=== PATIENT | male | born 1950 | race American Indian/Alaskan Native ===

== ENCOUNTER 2020-07-26 13:35 | Observation (INO) | payer MEDICARE, OTHER ==
[2020-07-26] MEDS ORDERED: MORPHINE 4 MG/1 ML INJ IV ONE (13:45)
[2020-07-26] MEDS ORDERED: ONDANSETRON 4 MG/2 ML INJ IV ONE (13:45)
--- NOTE | 2020-07-26 14:18 | Emergency Department Report ---
ED General Adult HPI - General Stated complaint: LEG PAIN Time Seen by Provider: 07/26/20 13:43 Source: patient - History of Present Illness Initial comments: Patient presents to the emergency department from Dr. Lindo's office for an ischemic left limb. Dr. Lindo who is a local vascular surgeon called to inform me that the patient had a procedure this morning without resolvent of blockage to his left lower extremity. Dr. Lindo will reach out to Dr. Kumar to make him aware of the patient's medical issue. Upon arrival the patient complains of significant pain to the left lower extremity especially the left foot. Patient states any movement of the left foot caused significant pain. Patient denies chest pain, shortness breath, headache. -: Sudden Location: lower extremity Radiation: non-radiation Severity scale (0 -10): 10 Quality: sharp Consistency: constant Improves with: rest Worsens with: movement Associated Symptoms: denies other symptoms Treatments Prior to Arrival: none ED Review of Systems ROS: Stated complaint: LEG PAIN Other details as noted in HPI Constitutional: denies: chills, fever Eyes: denies: eye pain, eye discharge, vision change ENT: denies: ear pain, throat pain Respiratory: denies: cough, shortness of breath, wheezing Cardiovascular: denies: chest pain, palpitations Endocrine: no symptoms reported Gastrointestinal: denies: abdominal pain, nausea, diarrhea Genitourinary: denies: urgency, dysuria Musculoskeletal: denies: back pain, joint swelling, arthralgia Skin: denies: rash, lesions Neurological: denies: headache, weakness, paresthesias Psychiatric: denies: anxiety, depression Hematological/Lymphatic: denies: easy bleeding, easy bruising ED Physical Exam - General General appearance: alert, in no apparent distress - Head Head exam: Present: atraumatic, normocephalic - Eye Eye exam: Present: normal appearance - ENT ENT exam: Present: mucous membranes moist - Neck Neck exam: Present: normal inspection - Respiratory Respiratory exam: Present: normal lung sounds bilaterally. Absent: respiratory distress - Cardiovascular Cardiovascular Exam: Present: regular rate, normal rhythm, other (Patient is left foot is cool to touch and blue without cap refill. There is no palpation of the dorsalis pedis or posterior tibialis pulses). Absent: systolic murmur, diastolic murmur, rubs, gallop - GI/Abdominal GI/Abdominal exam: Present: soft, normal bowel sounds. Absent: distended, tenderness - Rectal Rectal exam: Present: deferred - Back Exam Back exam: Present: normal inspection - Neurological Exam Neurological exam: Present: alert, oriented X3, CN II-XII intact. Absent: motor sensory deficit - Psychiatric Psychiatric exam: Present: normal affect, normal mood - Skin Skin exam: Present: warm, dry, intact, normal color. Absent: rash ED Medical Decision Making - Medical Decision Making Contacted Dr. Kumar who presented to the emergency department to see the patient. Plans for the patient [facility] with an attempt to revascularize the left lower extremity. Critical care attestation.: If time is entered above; I have spent that time in minutes in the direct care of this critically ill patient, excluding procedure time. ED Disposition Clinical Impression: Ischemic leg Disposition: OP ADMIT IP TO THIS HOSP Is pt being admited?: Yes Does the pt Need Aspirin: No Condition: Fair
--- NOTE | 2020-07-26 14:22 | Consultation ---
History of Present Illness - Reason for Consult Consult date: 07/26/20 Ischemic LLE Requesting physician: JOSETTE MACK - History of Present Illness 69-year-old male who presents with left lower extremity ischemic pain. Patient presents to the emergency department from Dr. Gimenez's office for an ischemic left limb. Dr. Gimenez who is a local vascular specialist called to inform me that the patient had a procedure this morning without resolvent of blockage to his left lower extremity. Dr. Gimenez will reach out to Dr. Kumar to make him aware of the patient's medical issue. Upon arrival the patient complains of significant pain to the left lower extremity especially the left foot. Patient states any movement of the left foot caused significant pain. Patient denies chest pain, shortness breath, headache. I was contacted earlier today about a complication at an outside practice and I was told the patient would be coming to the emergency room at [facility]. Patient has history of bilateral lower extremity fasciotomies and right femoral endarterectomy. Patient had a thrombotic showering event of the left lower extremity after intervention and now presents to the hospital with acute limb ischemia. Left lower extremity is Bennett 2a with intact motor function of the left lower extremity. He has a palpable right dorsalis pedis and posterior tibial pulse. Nonpalpable left pedal pulses Review of Systems All systems: negative (see HPI) Exam - Constitutional General appearance: Present: severe distress (Severe left lower extremity foot and calf pain) - Neck Neck: Present: supple - Respiratory Respiratory effort: normal - Extremities Extremities: abnormal (Called left foot, cold calf from mid calf down, severe left foot pain, sensory function is worse than baseline of the forefoot, motor function intact) Extremity abnormal: pulses diminished (Nonpalpable left pedal pulses, palpable right pedal pulses) - Abdominal General gastrointestinal: Present: soft, non-tender - Psychiatric Psychiatric: appropriate mood/affect, cooperative, other (In pain) Assessment and Plan 69-year-old male with left lower extremity showering event after iliac intervention by Dr. Gimenez who presents to [facility] with acute limb ischemia of the left lower extremity. I suspect there is developing trash foot of the left lower extremity from thrombotic showering due to left iliac intervention. Discussed with patient that he will need iliac artery stenting with covered stents and subsequently attempt at revascularization of the left lower extremity with thrombectomy devices. Risks, benefits, and alternatives discussed, risk of limb loss and bleeding discussed in depth with patient. Patient understands. Start heparin drip.
[2020-07-26 14:39] LABS: Basophils % (Auto) 0.3 % (0.0-1.8); Eosinophils % (Auto) 0.1 % (0.0-4.3); Hematocrit 44.1 % (35.5-45.6); Hemoglobin 14.3 gm/dl (11.8-15.2); Lymphocytes # (Auto) 1.7 K/mm3 (1.2-5.4); Lymphocytes % (Auto) 12.5 % (13.4-35.0); Mean Corpuscular HGB Conc 32 % (32-34); Mean Corpuscular Volume 71 fl (84-94); Monocytes # (Auto) 0.7 K/mm3 (0.0-0.8); Monocytes % (Auto) 4.9 % (0.0-7.3); Platelet Count 144 K/mm3 (140-440); Red Blood Count 6.19 M/mm3 (3.65-5.03); Red Cell Distribution Width 15.8 % (13.2-15.2)
[2020-07-26 14:50] LABS: Alanine Aminotransferase 120 units/L (7-56); Albumin 4.3 g/dL (3.9-5); BUN/Creatinine Ratio 14; Blood Urea Nitrogen 13 mg/dL (9-20); Calcium 9.2 mg/dL (8.4-10.2); Hemolysis Index 3
[2020-07-26] MEDS ORDERED: LIDOCAINE (2%) 20 MG/1 ML VIAL 20 ML MDV INFILTRATI ONE (15:05)
[2020-07-26] MEDS ORDERED: HEPARIN/NS 5000 UNIT/500ML 1,000 ML IR ONE ×2 (15:05→16:37)
[2020-07-26] MEDS ORDERED: SODIUM CHLORIDE 0.9% 1000 ML 1,000 ML ONE (15:06)
[2020-07-26 15:15] LABS: INR TNR (0.87-1.13); Partial Thromboplastin Time TNR Sec. (24.2-36.6)
[2020-07-26 15:17] LABS: Hematocrit 44.9 % (35.5-45.6); Hemoglobin 14.4 gm/dl (11.8-15.2)
[2020-07-26] MEDS ORDERED: ceFAZolin/Water 2 GM/20 ML 2 GM/20 ML SYRINGE IV ONE (15:50)
[2020-07-26] MEDS: MIDAZOLAM 2 MG/2 ML INJ ONE ×5 (15:59→17:55)
[2020-07-26] MEDS: fentaNYL 100 MCG/2 ML INJ ONE ×4 (15:59→17:55)
[2020-07-26] MEDS ORDERED: HEPARIN/ 0.45% NACL DRIP 25,000 UNIT/500 ML BAG IV SCH (16:00)
[2020-07-26] MEDS: HEPARIN 10,000 UNITS/10 ML VIAL ONE ×3 (16:49→18:12)
[2020-07-26] MEDS ORDERED: fentaNYL 100 MCG/2 ML INJ ONE (18:06)
[2020-07-26] MEDS ORDERED: MIDAZOLAM 2 MG/2 ML INJ ONE (18:06)
[2020-07-26] MEDS ORDERED: HEPARIN/NS 5000 UNIT/500ML 500 ML IR ONE (18:07)
[2020-07-26] MEDS ORDERED: NITROGLYCERIN SYRINGE 6 ML ONE (18:33)
[2020-07-26] MEDS: VERAPAMIL 5 MG/2 ML INJ ONE ×2 (18:37→18:38)
[2020-07-26] MEDS ORDERED: NITROGLYCERIN 2% OINT 1 GM TP ONE (19:09)
[2020-07-26] MEDS ORDERED: CLOPIDOGREL 300 MG TAB ONE (19:19)
[2020-07-26] MEDS ORDERED: ASPIRIN 81 MG TAB CHEW ONE (19:19)
[2020-07-26] MEDS ORDERED: SODIUM CHLORIDE 0.9% 500 ML 500 ML ONE (19:21)
--- NOTE | 2020-07-26 19:29 | Post Operative Note ---
Date of procedure: 07/26/20 Pre-op diagnosis: Acute limb ischemia of the left lower extremity Post-op diagnosis: same Procedure: 1. Ultrasound guided access of the right common femoral artery 2. Fluoroscopic guided access of the left common femoral artery 3. Selection of the abdominal aorta with bilateral lower extremity angiography 4. Stenting of the right common iliac artery with a VBX 8 mm x 59 mm which was post dilated with a 9 mm x 60 mm angioplasty balloon 5. Stenting of the left common iliac artery with a VBX 8 mm x 39 mm which was post dilated with a 9 mm x 60 mm angioplasty balloon 6. Ultrasound guided access of the left superficial femoral artery 7. Fluoroscopic guided placement of a 7 mm spider EPD in the left below the knee popliteal artery 7. Selection of the left superficial femoral artery and popliteal artery with CAT 6 aspiration penumbra thrombectomy of the left above the knee and mid knee popliteal artery stent. 8. Stenting of the left above the knee and mid knee popliteal artery with a 7 mm x 150 mm Everflex post dilated with a 6 mm x 150 mm iNPACT balloon 9. Fluoroscopic guided removal of the spider EPD 10. Selection of the left posterior tibial artery with CAT 6 aspiration penumbra thrombectomy and CAT RX aspiration penumbra thrombectomy 11. Angioplasty of the left posterior tibial artery with a 2.5 mm x 150 mm balloon 12. Injection of 5 mg of verapamil and 500 micrograms of nitroglycerin in the left posterior tibial artery 13. 6 Fr Angioseal closure of the left superficial femoral artery 14. Closure of the common femoral artery sheaths with manual compression Anesthesia: local (w/ conscious sedation) Surgeon: IVAN VALIENTE Estimated blood loss: minimal Condition: stable Disposition: floor
--- NOTE | 2020-07-26 19:30 | Operative Report ---
Operative Report Operative Report: EXAM: 1. Ultrasound guided access of the right common femoral artery 2. Fluoroscopic guided access of the left common femoral artery 3. Selection of the abdominal aorta with bilateral lower extremity angiography 4. Stenting of the right common iliac artery with a VBX 8 mm x 59 mm which was post dilated with a 9 mm x 60 mm angioplasty balloon 5. Stenting of the left common iliac artery with a VBX 8 mm x 39 mm which was post dilated with a 9 mm x 60 mm angioplasty balloon 6. Ultrasound guided access of the left superficial femoral artery 7. Selection of the left superficial femoral artery and popliteal artery with CAT 6 aspiration penumbra thrombectomy of the left above the knee and mid knee popliteal artery stent. 8. Fluoroscopic guided placement of a 7 mm spider EPD in the left below the knee popliteal artery 9. Stenting of the left above the knee and mid knee popliteal artery with a 7 mm x 150 mm Everflex post dilated with a 6 mm x 150 mm iNPACT balloon 10. Fluoroscopic guided removal of the spider EPD 11. Selection of the left posterior tibial artery with CAT 6 aspiration penumbra thrombectomy and CAT RX aspiration penumbra thrombectomy 12. Angioplasty of the left posterior tibial artery with a 2.5 mm x 150 mm balloon 13. Injection of 5 mg of verapamil and 500 micrograms of nitroglycerin in the left posterior tibial artery 14. 6 Fr Angioseal closure of the left superficial femoral artery 15. Closure of the common femoral artery sheaths with manual compression DATE: 07/26/2020 CLAY MINER: IVAN VALIENTE MD INDICATION: Acute limb ischemia of the left lower extremity, Zuly 2A, had embolic showering event at outside facility and presents to the emergency room with ischemic left lower extremity. MEDICATIONS: Please see nursing report for full details. DEVICES: 8 mm x 59 mm VBX, right side 8 mm x 39 mm VBX, left side 7 mm x 150 mm Everflex, left side 6 mm x 150 mm iNPACT balloon, left side 2.5 mm x 150 mm milli balloon CAT 6 indigo penumbra thrombectomy device CAT RX indigo penumbra thrombectomy device CONTRAST: Please see Comic Illustrator report for full details. PROCEDURE: The risks, benefits, and alternatives were discussed with the patient; written informed consent was obtained. The patient's groins and entire left leg were prepped and draped in a sterile fashion. The bilateral groins had severe scarring secondary to prior endarterectomies. Heparin had been started prior to the procedure with a heparin drip. Ultrasound was used to identify the right common femoral artery. Under direct ultrasound guidance, the right common femoral artery was accessed with a 21- gauge micropuncture needle. 0.018 inch wire was passed into the aorta. The inner part of the transitional dilator was used to exchanged the wire for a V 18 wire. Transitional dilator was reassembled over the wire and the wire was then exchanged for a Glidewire advantage. Serial dilatation was performed until a 5 Afghan sheath was placed. Digital subtraction angiography was performed demonstrating an appropriate puncture, above the level of the bifurcation, and below the inferior epigastric artery. The right common femoral artery, proximal superficial femoral artery, and profunda femoral artery were patent. Omni Flush catheter was advanced over the wire and used to select the abdominal aorta. Digital subtraction angiography was performed demonstrating 20% narrowing of the right common iliac artery stent, patency of the right external iliac artery, and flush occlusion of the right internal iliac artery. There was reconstitution of some of the internal iliac branches. The left common iliac artery was occluded. The left internal iliac artery was patent and provided flow into the left external iliac artery which was also patent. The left common femoral artery was patent. The infrarenal abdominal aorta was patent. Ultrasound was used to attempt to identify the left common femoral artery, but due to extensive scarring, this was not possible. Using fluoroscopic imaging, I accessed the left common femoral artery in a safe position below the inferior epigastric artery and above the bifurcation with a 21-gauge micropuncture needle. 0.018 inch wire was passed through the external iliac artery. Wire was then exchanged using the inner portion of the transitional dilator for a V 18 wire. Transitional dilator was reassembled over the wire and the wire was exchanged for a Glidewire advantage. Serial dilatation was performed and a 7 Afghan sheath was placed. The right common femoral sheath was then dilated for a 7 Afghan sheath. Digital subtraction angiography was performed to the left sheath demonstrating an appropriate puncture, above the bifurcation and below the inferior epigastric artery. The left profunda femoral artery had sluggish flow suggestive of some distal embolization in the vessel. The left proximal superficial femoral artery also had some sluggish flow. The left common femoral artery was patent. The patient was further heparinized. At this point, kissing bilateral 8 mm VBX stents were advanced over the wires. An 8 mm x 59 mm VBX stent was advanced to the right common iliac artery and an 8 mm x 39 mm VBX stent was advanced over the left common iliac artery. These were positioned in order to avoid covering the internal iliac artery. They were inflated together and digital subtraction angiography demonstrated patency of the bilateral common iliac arteries after placement of the stents. They were slightly undersized and therefore 9 mm x 60 mm angioplasty balloon was used to perform angioplasty at each side in order to post dilate them to 9 mm. Digital subtraction angiography was performed demonstrating excellent flow through the bilateral common iliac arteries, external iliac arteries, and to the common femoral arteries. The left internal iliac artery was still patent. The right internal iliac artery had unchanged occlusion. At this point, digital subtraction angiography was performed to the left sheath in order to assess the runoff. The proximal and mid and distal left superficial femoral artery was patent. There is a Viabahn in the above-knee popliteal artery which extends to the mid knee popliteal artery. This was occluded. Immediately above and below the Viabahn was 50% narrowings which extended for a few centimeters above and below. Below this, the anterior tibial artery was occluded after the first few centimeters, the tibioperoneal trunk was patent, the posterior tibial artery was occluded, and the peroneal artery had minimal flow. The patient required further intervention in order to salvage the left lower extremity. Due to the extensive scarring of the groin, traditional antegrade puncture of the left lower extremity could not be performed due to extensive scarring. Therefore, I decided to access the left proximal superficial femoral artery directly. Ultrasound was used to identify the left superficial femoral artery. Under direct ultrasound guidance, the left proximal superficial femoral artery was accessed with a 21-gauge micropuncture needle. 0.018 inch wire was passed into the superficial femoral artery. Needle was exchanged for transitional dilator. Wire was exchanged for a Glidewire advantage. Serial dilatation was performed and a 6 Afghan sheath was placed. Wire and catheter were used to select the left distal superficial femoral artery and digital subtraction angiography was performed demonstrating the occluded left popliteal artery stent. CAT 6 device was then advanced over the wire and used to perform aspiration thrombectomy of the [id number] mid knee pop Viabahn to popliteal artery stent graft multiple times. Large amount of thrombus was removed. There is still some residual thrombus noted. 7 mm spider embolic protection device was deployed in the left below the knee popliteal artery. I then used a 7 mm x 150 mm Everflex stent and stented across the Viabahn stent in order to trap the remaining thrombus. Afterwards, 6 mm x 150 mm iNPACT balloon was used to post dilatate the area. Digital subtraction angiography was performed demonstrating patency of the left popliteal artery, but sluggish flow in the embolic protection device. The embolic detection device was then retrieved. Digital subtraction angiography was repeated demonstrating flow through the popliteal artery into the tibioperoneal trunk, and the above-mentioned tibial findings. There was no further embolization. At this point, the CAT 6 device was then used to select the left posterior tibial artery and digital subtraction angiography was performed demonstrating a thrombus in the proximal portion of the vessel, and severe dissection with thr ombus in the distal portion of the vessel. Aspiration thrombectomy was performed throughout the posterior tibial artery aspirating a large amount of thrombus. Repeat angiography demonstrated some re sidual dissection with extravasation and a small amount of thrombus in the distal portion of the vessel. CAT Rx device was then used over a 0.014 inch wire to aspirate out the residual thrombus in the post posterior tibial artery, common plantar artery, and lateral plantar artery. Afterwards, 2.5 mm x 150 mm angioplasty balloon was advanced over the wire to the distal posterior tibial artery and the balloon was inflated. The wire was removed and a combination of nitroglycerin and verapamil was injected in order to treat the spasm within the plantar vessels. Ultimately the spasm resolved, and the balloon was deflated and retracted and digital subtraction angiography was performed to the balloon demonstrating patency of the posterior tibial artery with flow into the foot. This was then slowly retracted and repeat injections were performed demonstrating patency of the posterior tibial artery. At this point, the patient now had a predominantly single-vessel runoff of the left lower extremity through the left posterior tibial artery. The left anterior tibial artery, which appeared chronically occluded due to collaterals, was still present, and the peroneal artery which was a small vessel in general, was patent. The patient had a palpable pulse of the left posterior tibial artery. At this point, Angio-Seal was used to close the left superficial femoral artery access site which was successfully sealed. Digital subtraction angiography was performed to the left common femoral sheath demonstrating patency of the left proximal superficial femoral artery, consistent with a successful Angio-Seal closure. There is no intravascular portion of the Angio-Seal visualized within the superficial femoral artery. ACT was obtained and it was 180. Both 7 Afghan sheaths were then removed from the groin to the heavily scarred endarterectomy sites and pressure was held until hemostasis was achieved. Pressure dressings were then applied to the groins. Patient had full sensory, and motor function of the left lower extremity. No pain of the left lower extremity at the conclusion of the procedure. Patient previously has had fasciotomies of the bilateral lower extremities. FINDINGS: Please see procedure note above. IMPRESSION: 1. Successful endovascular revascularization of the lower extremities as described above.
--- NOTE | 2020-07-26 19:33 | Event Note ---
Date: 07/26/20 Complex procedure with multiple access sites for acute limb ischemia. Procedure successful, has full sensory, motor, and no pain. Has palpable pedal pulses. No worry for compartment syndrome since fasciotomies have been performed previously. Remove nitroglycerin at 11 pm tonight. Restarted aspirin, and plavix. Started low dose eliquis and protonix for GI prophylaxis. Will reassess tomorrow. Plan for followup in 2 weeks.
[2020-07-26] MEDS ORDERED: HYDROcodone/ACETAMINOPHEN 5-325 MG TAB PO PRN (21:05)
[2020-07-26] MEDS ORDERED: HYDROmorphone 1 MG/1 ML INJ IV PRN (21:07)
[2020-07-26] MEDS: HYDROcodone/ACETAMINOPHEN 5-325 MG TAB PO PRN (21:23)
[2020-07-26] MEDS: PANTOPRAZOLE 40 MG TAB PO SCH (21:24)
[2020-07-26] MEDS: ASPIRIN EC 81 MG TAB PO SCH (21:28)
[2020-07-26] MEDS: APIXABAN 2.5 MG TAB PO SCH (22:17)
[2020-07-27] MEDS: HYDROcodone/ACETAMINOPHEN 5-325 MG TAB PO PRN ×3 (01:02→13:59)
[2020-07-27] MEDS ORDERED: PANTOPRAZOLE 40 MG TAB PO SCH (07:30)
--- NOTE | 2020-07-27 08:48 | History and Physical Report ---
History of Present Illness Date of examination: 07/26/20 Date of admission: 07/26/20 14:11 Chief complaint: Pain left lower extremity for 1 week History of present illness: Patient presents to the emergency department from Dr. Lindo's office for an ischemic left limb. Dr. Lindo who is a local vascular surgeon called to inform me that the patient had a procedure this morning without resolvent of blockage to his left lower extremity. Dr. Lindo will reach out to Dr. Kumar to make him aware of the patient's medical issue. Upon arrival the patient complains of significant pain to the left lower extremity especially the left foot. Patient states any movement of the left foot caused significant pain. Patient denies chest pain, shortness breath, headache. -: Sudden Location: lower extremity Radiation: non-radiation Severity scale (0 -10): 10 Quality: sharp Consistency: constant Improves with: rest Worsens with: movement Associated Symptoms: denies other symptoms Treatments Prior to Arrival: none Past medical history HTN Insulin-dependent diabetes Hyperlipidemia Peripheral arterial disease Peripheral neuropathy Surgical history fasciotomy in both the lower extremities Family history HTN v Social history used to smoke half a pack a day for last 40 years till 6 years ago Half a pack a day. Patient has 20 years pack history Review of Systems ROS: Stated complaint: LEG PAIN Other details as noted in HPI Constitutional: denies: chills, fever Eyes: denies: eye pain, eye discharge, vision change ENT: denies: ear pain, throat pain Respiratory: denies: cough, shortness of breath, wheezing Cardiovascular: denies: chest pain, palpitations Endocrine: no symptoms reported Gastrointestinal: denies: abdominal pain, nausea, diarrhea Genitourinary: denies: urgency, dysuria Musculoskeletal: denies: back pain, joint swelling, arthralgia Skin: denies: rash, lesions Neurological: denies: headache, weakness, paresthesias Psychiatric: denies: anxiety, depression Hematological/Lymphatic: denies: easy bleeding, easy bruising Medications and Allergies Allergies Allergy/AdvReac Type Severity Reaction Status Date / Time No Known Allergies Allergy Unverified 07/26/20 15:28 Home Medications Medication Instructions Recorded Confirmed Last Taken Type Apixaban [Eliquis] 2.5 mg PO BID #60 tablet 07/27/20 Unknown Rx Clopidogrel [Plavix] 75 mg PO QDAY #90 tablet 07/27/20 Unknown Rx HYDROcodone/APAP 7.5-325 [[place] 1 each PO Q6HR PRN #40 tablet 07/27/20 Unknown Rx 7.5/325] Pantoprazole [Protonix] 40 mg PO QDAY #90 tablet 07/27/20 Unknown Rx Active Meds: Active Medications Hydrocodone Bitart/Acetaminophen (Hydrocodone/Acetaminophen 5-325 Mg Tab) 1 each PO Q4H PRN PRN Reason: Pain, Mild (1-3) Last Admin: 07/27/20 05:29 Dose: 1 each Documented by: Hydrocodone Bitart/Acetaminophen (Hydrocodone/Acetaminophen 5-325 Mg Tab) 2 each PO Q4H PRN PRN Reason: Pain, Moderate (4-6) Apixaban (Apixaban 2.5 Mg Tab) 2.5 mg PO Q12HR [facility]; Protocol Last Admin: 07/26/20 22:17 Dose: 2.5 mg Documented by: Aspirin (Aspirin Ec 81 Mg Tab) 81 mg PO QDAY [facility] Last Admin: 07/26/20 21:28 Dose: Not Given Documented by: Clopidogrel Bisulfate (Clopidogrel 75 Mg Tab) 75 mg PO QDAY [facility] Hydromorphone HCl (Hydromorphone 1 Mg/1 Ml Inj) 1 mg IV Q2H PRN PRN Reason: Pain , Severe (7-10) Insulin Human Lispro (Insulin Lispro 100 Unit/Ml) 0 unit SUB-Q ACHS [facility]; Protocol Pantoprazole Sodium (Pantoprazole 40 Mg Tab) 40 mg PO QDAC [facility] Last Admin: 07/26/20 21:24 Dose: 40 mg Documented by: Exam - Constitutional Vitals: Temp Pulse Resp BP Pulse Ox 98.3 F 76 17 181/84 97 07/27/20 08:37 07/27/20 08:37 07/27/20 08:37 07/27/20 08:37 07/27/20 08:37 General appearance: Present: no acute distress, well-nourished - EENT Eyes: Present: PERRL ENT: hearing intact, clear oral mucosa - Neck Neck: Present: supple, normal ROM - Respiratory Respiratory effort: normal Respiratory: bilateral: CTA - Cardiovascular Heart rate: 78 Rhythm: regular Heart Sounds: Present: S1 & S2. Absent: rub, click - Extremities Extremities: pulses symmetrical, No edema, abnormal (Initially cold to touch on the left lower extremity--no warm to touch after the angioplasty) Peripheral Pulses: within normal limits - Abdominal General gastrointestinal: Present: soft, non-tender, non-distended, normal bowel sounds Male genitourinary: Present: normal - Integumentary Integumentary: Present: clear, warm, dry - Musculoskeletal Musculoskeletal: gait normal, strength equal bilaterally - Psychiatric Psychiatric: appropriate mood/affect, intact judgment & insight - Neurologic Neurologic: CNII-XII intact, moves all extremities HEART Score - HEART Score History: Slightly suspicious Risk factors: > 3 risk factors or hx of atherosclerotic disease Troponin: < normal limit - Critical Actions Critical Actions: 0-3 pts:0.9-1.7%risk of adverse cardiac event.Candidate for discharge Results - Labs CBC & Chem 7: 07/26/20 14:46 07/26/20 14:08 Labs: Laboratory Last Values WBC 13.9 K/mm3 (4.5-11.0) H 07/26/20 14:08 RBC 6.19 M/mm3 (3.65-5.03) H 07/26/20 14:08 Hgb 14.4 gm/dl (11.8-15.2) 07/26/20 14:46 Hct 44.9 % (35.5-45.6) 07/26/20 14:46 MCV 71 fl (84-94) L 07/26/20 14:08 MCH 23 pg (28-32) L 07/26/20 14:08 MCHC 32 % (32-34) 07/26/20 14:08 RDW 15.8 % (13.2-15.2) H 07/26/20 14:08 Plt Count 156 K/mm3 (140-440) 07/26/20 14:46 Lymph % (Auto) 12.5 % (13.4-35.0) L 07/26/20 14:08 [place] % (Auto) 4.9 % (0.0-7.3) 07/26/20 14:08 Eos % (Auto) 0.1 % (0.0-4.3) 07/26/20 14:08 Baso % (Auto) 0.3 % (0.0-1.8) 07/26/20 14:08 Lymph # (Auto) 1.7 K/mm3 (1.2-5.4) 07/26/20 14:08 [place] # (Auto) 0.7 K/mm3 (0.0-0.8) 07/26/20 14:08 Eos # (Auto) 0.0 K/mm3 (0.0-0.4) 07/26/20 14:08 Baso # (Auto) 0.0 K/mm3 (0.0-0.1) 07/26/20 14:08 Seg Neutrophils % 82.2 % (40.0-70.0) H 07/26/20 14:08 Seg Neutrophils # 11.4 K/mm3 (1.8-7.7) H 07/26/20 14:08 PT TNR 07/26/20 14:08 INR TNR 07/26/20 14:08 APTT TNR 07/26/20 14:08 Sodium 138 mmol/L (137-145) 07/26/20 14:08 Potassium 3.9 mmol/L (3.6-5.0) 07/26/20 14:08 Chloride 105.7 mmol/L (98-107) 07/26/20 14:08 Carbon Dioxide 24 mmol/L (22-30) 07/26/20 14:08 Anion Gap 12 mmol/L 07/26/20 14:08 BUN 13 mg/dL (9-20) 07/26/20 14:08 Creatinine 0.9 mg/dL (0.8-1.3) 07/26/20 14:08 Estimated GFR > 60 ml/min 07/26/20 14:08 BUN/Creatinine Ratio 14 % 07/26/20 14:08 Glucose 172 mg/dL (75-100) H 07/26/20 14:08 Lactic Acid 2.30 mmol/L (0.7-2.0) H* 07/26/20 14:08 Calcium 9.2 mg/dL (8.4-10.2) 07/26/20 14:08 Phosphorus 3.70 mg/dL (2.5-4.5) 07/26/20 14:08 Magnesium 2.00 mg/dL (1.7-2.3) 07/26/20 14:08 Total Bilirubin 0.50 mg/dL (0.1-1.2) 07/26/20 14:08 AST 68 units/L (5-40) H 07/26/20 14:08 ALT 120 units/L (7-56) H 07/26/20 14:08 Alkaline Phosphatase 70 units/L (35-129) 07/26/20 14:08 Total Protein 7.2 g/dL (6.3-8.2) 07/26/20 14:08 Albumin 4.3 g/dL (3.9-5) 07/26/20 14:08 Albumin/Globulin Ratio 1.5 % 07/26/20 14:08 Blood Type A POSITIVE 07/26/20 14:11 Antibody Screen Negative 07/26/20 14:11 Short CBC 07/26/20 Range/Units 14:46 Hgb 14.4 (11.8-15.2) gm/dl Hct 44.9 (35.5-45.6) % Plt Count 156 (140-440) K/mm3 Virgen/IV: Voiding Method Urinal Assessment and Plan Advance Directives: Yes (FC) VTE prophylaxis?: Chemical Plan of care discussed with patient/family: Yes - Patient Problems (1) Ischemia of left lower extremity Current Visit: Yes Status: Acute Plan to address problem: patient going to [facility]ation lab[facility] for intervention and angioplasty /stent (2) PAD (peripheral artery disease) Current Visit: Yes Status: Acute Plan to address problem: On Olavix (3) DVT prophylaxis Current Visit: Yes Status: Acute (4) Hypertension Current Visit: Yes Status: Chronic Qualifiers: Hypertension type: essential hypertension Qualified Code(s): I10 - Essential (primary) hypertension Plan to address problem: Continue antihypertensives and adjust medications as necessary (5) IDDM (insulin dependent diabetes mellitus) Current Visit: Yes Status: Chronic Plan to address problem: Continue Tresiba and Metformin. Check hemoglobin A1c (6) Hyperlipidemia Current Visit: Yes Status: Chronic Qualifiers: Hyperlipidemia type: mixed hyperlipidemia Qualified Code(s): E78.2 - Mixed hyperlipidemia Plan to address problem: Continue statins (7) DVT prophylaxis Current Visit: Yes Status: Acute Plan to address problem: On heparin and GI prophylaxis
[2020-07-27] MEDS: PANTOPRAZOLE 40 MG TAB PO SCH (09:26)
[2020-07-27] MEDS: ASPIRIN EC 81 MG TAB PO SCH (09:26)
[2020-07-27] MEDS: APIXABAN 2.5 MG TAB PO SCH (09:52)
[2020-07-27] MEDS ORDERED: CLOPIDOGREL 75 MG TAB PO SCH (10:00)
--- NOTE | 2020-07-27 11:37 | Progress Note ---
Assessment and Plan The patient is post procedure day #1 of bilateral common iliac artery angioplasty and stent graft placement with percutaneous mechanical thrombectomy of the left SFA. He also underwent angioplasty and stent of the left SFA and popliteal artery as well as percutaneous mechanical thrombectomy of his left posterior tibial artery with angioplasty of the artery. He is doing very well and has a palpable pulse. His groin entry sites are soft and without hematoma. He has been given discharge instructions and is clinically ready for discharge to home. He should follow-up with Dr. Kumar in the office in 2 weeks after discharge. Subjective Date of service: 07/27/20 Principal diagnosis: Acute Left Lower Extremity Ischemia Interval history: The patient has no complaints at this time. He states his left leg and foot feel good. He denies any pain, numbness, or tingling. Objective - Constitutional Vitals: Vital Signs - 12hr 07/27/20 07/27/20 07/27/20 01:02 01:06 04:41 Temperature 98.2 F Pulse Rate 66 87 Respiratory 17 17 18 Rate Respiratory Rate [Left Foot ] Blood Pressure 166/84 Blood Pressure 127/61 [Right] O2 Sat by Pulse 96 95 Oximetry 07/27/20 07/27/20 07/27/20 05:29 06:35 08:00 Temperature Pulse Rate Respiratory 17 18 Rate Respiratory Rate [Left Foot ] Blood Pressure Blood Pressure 154/74 [Right] O2 Sat by Pulse 97 Oximetry 07/27/20 07/27/20 07/27/20 08:37 09:38 10:51 Temperature 98.3 F Pulse Rate 76 Respiratory 17 20 Rate Respiratory 18 Rate [Left Foot ] Blood Pressure Blood Pressure 181/84 [Right] O2 Sat by Pulse 97 Oximetry General appearance: Present: no acute distress Extremities: no ischemia, pulses intact (Left posterior tibial pulse is palpable), normal temperature, abnormal (Bilateral groin puncture sites are soft and without hematomas.) - Labs CBC & Chem 7: 07/26/20 14:46 07/26/20 14:08 Labs: Abnormal lab results 07/26/20 07/26/20 07/26/20 Range/Units 14:08 14:08 14:08 WBC 13.9 H (4.5-11.0) K/mm3 RBC 6.19 H (3.65-5.03) M/mm3 MCV 71 L (84-94) fl MCH 23 L (28-32) pg RDW 15.8 H (13.2-15.2) % Lymph % (Auto) 12.5 L (13.4-35.0) % Seg Neutrophils % 82.2 H (40.0-70.0) % Seg Neutrophils # 11.4 H (1.8-7.7) K/mm3 Glucose 172 H (75-100) mg/dL Lactic Acid 2.30 H* (0.7-2.0) mmol/L AST 68 H (5-40) units/L ALT 120 H (7-56) units/L Medications & Allergies - Medications Allergies/Adverse Reactions: Allergies No Known Allergies Allergy (Unverified 07/26/20 15:28) Active Medications: Generic Name Dose Route Start Last Admin Trade Name Freq PRN Reason Stop Dose Admin Hydrocodone Bitart/Acetaminophen 1 each 07/26/20 21:05 07/27/20 05:29 Hydrocodone/Acetaminophen 5-325 Mg Tab PO 1 each Q4H PRN Administration Pain, Mild (1-3) Hydrocodone Bitart/Acetaminophen 2 each 07/26/20 21:05 07/27/20 09:38 Hydrocodone/Acetaminophen 5-325 Mg Tab PO 2 each Q4H PRN Administration Pain, Moderate (4-6) Apixaban 2.5 mg 07/26/20 22:00 07/27/20 09:52 Apixaban 2.5 Mg Tab PO 2.5 mg Q12HR [facility] Administration Protocol Aspirin 81 mg 07/26/20 20:00 07/27/20 09:26 Aspirin Ec 81 Mg Tab PO 81 mg QDAY [facility] Administration Clopidogrel Bisulfate 75 mg 07/27/20 10:00 07/27/20 09:26 Clopidogrel 75 Mg Tab PO 75 mg QDAY [facility] Administration Hydromorphone HCl 1 mg 07/26/20 21:07 Hydromorphone 1 Mg/1 Ml Inj IV Q2H PRN Pain , Severe (7-10) Insulin Human Lispro 0 unit 07/27/20 07:30 Insulin Lispro 100 Unit/Ml SUB-Q ACHS [facility] Protocol Pantoprazole Sodium 40 mg 07/26/20 20:00 07/27/20 09:26 Pantoprazole 40 Mg Tab PO 40 mg QDAC [facility] Administration
[2020-07-27] MEDS: INSULIN LISPRO 100 UNIT/ML SUB-Q SCH ×2 (11:44)
[2020-07-27 12:14] VITALS: BP 164/71
--- NOTE | 2020-07-27 15:03 | Discharge Summary ---
Providers - Providers Date of Admission: 07/26/20 14:11 Date of discharge: 07/27/20 Attending physician: EVELIN IRVIN 07/26/20 14:08 Consult to Physician [CONS] Stat Comment: Consulting Provider: IVAN VALIENTE Physician Instructions: Reason For Exam: ischemic limb Primary care physician: HAND COLLATOR Hospitalization Condition: Fair Hospital course: Patient presents to the emergency department from Dr. Lindo's office for an ischemic left limb. Dr. Lindo who is a local vascular surgeon called to inform me that the patient had a procedure this morning without resolvent of blockage to his left lower extremity. Dr. Lindo will reach out to Dr. Valiente to make him aware of the patient's medical issue. Upon arrival the patient complains of significant pain to the left lower extremity especially the left foot. Patient states any movement of the left foot caused significant pain. Patient denies chest pain, shortness breath, headache. -: Sudden Location: lower extremity Radiation: non-radiation Severity scale (0 -10): 10 Quality: sharp Consistency: constant Improves with: rest Worsens with: movement Associated Symptoms: denies other symptoms Treatments Prior to Arrival: none Assessment and Plan Advance Directives: Yes (FC) VTE prophylaxis?: Chemical Plan of care discussed with patient/family: Yes - Patient Problems (1) Ischemia of left lower extremity Current Visit: Yes Status: Acute Plan to address problem: patient had angioplasty with good results (2) PAD (peripheral artery disease) Current Visit: Yes Status: Acute Plan to address problem: On Olavix (3) DVT prophylaxis Current Visit: Yes Status: Acute (4) Hypertension Current Visit: Yes Status: Chronic Qualifiers: Hypertension type: essential hypertension Qualified Code(s): I10 - Essential (primary) hypertension Plan to address problem: Continue antihypertensives and adjust medications as necessary (5) IDDM (insulin dependent diabetes mellitus) Current Visit: Yes Status: Chronic Plan to address problem: Continue Tresiba and Metformin. Check hemoglobin A1c (6) Hyperlipidemia Current Visit: Yes Status: Chronic Qualifiers: Hyperlipidemia type: mixed hyperlipidemia Qualified Code(s): E78.2 - Mixed hyperlipidemia Plan to address problem: Continue statins (7) DVT prophylaxis Current Visit: Yes Status: Acute Plan to address problem: On heparin and GI prophylaxis Disposition: TO HOME OR SELFCARE - Discharge Diagnoses (1) Ischemia of left lower extremity Status: Acute Comment: Complex procedure with multiple access sites for acute limb ischemia. Procedure successful, has full sensory, motor, and no pain. Has palpable pedal pulses. No worry for compartment syndrome since fasciotomies have been performed previously. Remove nitroglycerin at 11 pm tonight. Restarted aspirin, and plavix. Started low dose eliquis and protonix for GI prophylaxis. Will reassess tomorrow. Plan for followup in 2 weeks. (2) PAD (peripheral artery disease) Status: Acute (3) DVT prophylaxis Status: Acute (4) Hypertension Status: Chronic Qualifiers: Hypertension type: essential hypertension Qualified Code(s): I10 - Essential (primary) hypertension (5) IDDM (insulin dependent diabetes mellitus) Status: Chronic (6) Hyperlipidemia Status: Chronic Qualifiers: Hyperlipidemia type: mixed hyperlipidemia Qualified Code(s): E78.2 - Mixed hyperlipidemia (7) DVT prophylaxis Status: Acute Core Measure Documentation - Palliative Care Palliative Care/ Comfort Measures: Not Applicable - Core Measures Any of the following diagnoses?: none Exam - Constitutional Vitals: Temp Pulse Resp BP Pulse Ox 98.0 F 78 18 164/71 97 07/27/20 11:05 07/27/20 11:05 07/27/20 13:59 07/27/20 11:05 07/27/20 11:05 General appearance: Present: no acute distress, well-nourished - EENT Eyes: Present: PERRL ENT: hearing intact, clear oral mucosa - Neck Neck: Present: supple, normal ROM - Respiratory Respiratory effort: normal Respiratory: bilateral: CTA - Cardiovascular Heart rate: 78 Rhythm: regular Heart Sounds: Present: S1 & S2. Absent: rub, click - Extremities Extremities: no ischemia, pulses symmetrical, No edema, abnormal (Left lower extremity looks normal after the angioplasty and intervention) Peripheral Pulses: within normal limits - Abdominal General gastrointestinal: Present: soft, non-tender, non-distended, normal bowel sounds Male genitourinary: Present: normal - Integumentary Integumentary: Present: clear, warm, dry - Musculoskeletal Musculoskeletal: gait normal, strength equal bilaterally - Psychiatric Psychiatric: appropriate mood/affect, intact judgment & insight - Neurologic Neurologic: CNII-XII intact, moves all extremities Plan Activity: no restrictions Follow up with: IVAN VALIENTE MD [Staff Physician] - 14 Days PRIMARY CARE, [Primary Care Provider] - 7 Days Prescriptions: Apixaban [Eliquis] 2.5 mg PO BID #60 tablet HYDROcodone/APAP 7.5-325 [[place] 7.5/325] 1 each PO Q6HR PRN #40 tablet PRN Reason: Pain Clopidogrel [Plavix] 75 mg PO QDAY #90 tablet Pantoprazole [Protonix] 40 mg PO QDAY #90 tablet
== END 2020-07-27 15:28 | disposition home or self-care (01) ==
LOC: ED 13:35 → INTOOBSV 14:11 → 3A 14:11 → 3B-SURG 16:26
PROVIDERS: ADMIT Internal Medicine; ATTEND Internal Medicine
DX: I70.222 Atherosclerosis of native arteries of extremities with rest pain, left leg (principal); I99.8 Other disorder of circulatory system; I10 Essential (primary) hypertension; I70.90 Unspecified atherosclerosis; E11.9 Type 2 diabetes mellitus without complications; E78.5 Hyperlipidemia, unspecified; G62.9 Polyneuropathy, unspecified; F17.210 Nicotine dependence, cigarettes, uncomplicated; Z79.4 Long term (current) use of insulin; Z98.890 Other specified postprocedural states; Z79.82 Long term (current) use of aspirin
CPT/HCPCS: 36415; 37184; 37185; 37221; 37226; 37228; 75625; 75716; 76937; 80053; 82140; 82962; 83735; 84100; 85014; 85018; 85025; 85049; 86850; 86900; 86901; 99284; C1725; C1760; C1769; C1874; C1876; C1884; C1887; C2623; G0378; J0690; J1644; J2250; J3010; J7030; J7040; J1815; Q9967